=== PATIENT | female | born 1985 | race Caucasian/White ===

== ENCOUNTER 2021-03-10 10:46 | Emergency (ER) | payer BC, SELFPAY ==
[2021-03-10 11:37] VITALS: BP 131/94; PULSE 118; RESP 18; TEMP 37.3; O2SAT 96; BMI 24.7
[2021-03-10 13:02] LABS: Bilirubin Urine Neg (Negative); Blood Urine 3+ (Negative); Glucose Urine UA Norm (Normal); Ketones Urine Negative (Negative); Leukocyte Esterase Urine 2+ (Negative); Nitrate Urine Negative (Negative); Protein Urine Neg (Negative); Specific Gravity, Urine 1.015 (1.005-1.030); Urine Appearance Cloudy (CLEAR); Urine Color Yellow (Yellow); Urobilinogen Urine Norm (Negative); pH Urine 7 (5-7)
[2021-03-10 13:04] LABS: Add Urine Culture? Yes; Amorphous Sediment Urine 2+ /hpf; Bacteria Urine 2+ /hpf; WBC Urine 15-25 /hpf (0-5)
--- NOTE | 2021-03-10 13:29 | W.ED.ABDPA2 ---
HPI - Abdominal Pain General: Chief Complaint: Abdominal Pain Stated Complaint: lower abd pain, bleeding Time Seen by Provider: 03/10/21 13:16 History of Present Illness: HPI narrative: Patient is a 35-year-old female comes to the ED with bilateral pelvic pain and vaginal bleeding. Approximately 4 days ago she started developing bilateral pelvic pain. This morning she woke up and she was having some light vaginal bleeding. Patient took some Motrin this morning to help with the pain. Few hours later this morning she started having some light vaginal bleeding as well. Patient last menstrual period was on February 17. Patient says that for the past 3 months prior she had been taking control but for the past month she has not been taking it. She does endorse being sexually active but says that her significant other has had a vasectomy. Associated Symptoms: Denies chills, constipation, diarrhea, dysuria, fever(s), hematochezia, hematuria, nausea and vomiting Related Data: Date of Last Menstrual Period: 02/17/21 Review of Systems Const: Denies: fever(s), chills or fatigue Eyes: Denies: change in vision or eye discomfort ENMT: Denies: throat pain, odynophagia, nasal discharge or nasal congestion Card: Denies: chest pain, palpitations, edema, swelling of feet/ankles, dyspnea on exertion or orthopnea Resp: Denies: dyspnea, productive cough or non-productive cough GI: Reports: abdominal pain (Bilateral pelvic pain); Denies: nausea, vomiting, diarrhea, constipation or hematochezia : Reports: vaginal bleeding and pelvic pain; Denies: flank pain, dysuria or hematuria Musc: Denies: neck pain, back pain or extremity swelling Skin/Breast: Denies: rash or new lesions Neuro: Denies: headache(s), numbness in extremities or weakness in extremities [facility] ED Female Reproductive History: Date of last menstrual period: 02/17/21 Physical Exam Const: COMMON NORMALS: no acute distress, patient oriented x3, healthy appearing and alert GENERAL APPEARANCE: cooperative and comfortable HENMT: COMMON NORMALS: normocephalic HEAD & SCALP: normocephalic MOUTH: Normal oral and palatal mucosa present THROAT: posterior oropharynx normal and uvula midline Neck/C-Spine: COMMON NORMALS: supple GENERAL: Yes normal visual inspection Resp: COMMON NORMALS: normal respiratory effort, No retractions, No use of accessory muscles and clear to auscultation bilaterally AUSCULTATION: clear to auscultation bilaterally Cardio: COMMON NORMALS: regular rate, regular rhythm, S1 normal heart sound present, S2 normal heart sound present, No gallops present (Cardio), No clicks present (Cardio), No murmurs present (Cardio) and Peripheral pulses 2+ throughout RATE: regular rate RHYTHM: regular rhythm HEART SOUNDS: S1 normal heart sound present and S2 normal heart sound present PERIPHERAL PULSES: Peripheral pulses 2+ throughout GI: COMMON NORMALS: Normal to inspection, nondistended, normoactive bowel sounds present, Soft to palpation and no masses PALPATION: Yes Soft to palpation, Yes Tenderness to palpation present (GI) (Left lower pelvic tenderness) and Yes Bladder palpation abnormal : COMMON NORMALS: Yes no CVA tenderness BLADDER/KIDNEY EXAM: Yes no CVA tenderness and Yes Bladder palpation abnormal Bladder abnormal details: tender Back/Pelvis: COMMON NORMALS: no CVA tenderness Extremity: COMMON NORMALS: normal to inspection Neuro: COMMON NORMALS: patient oriented x3 SENSORIUM/ORIENTATION: Yes alert GAIT: Yes Normal gait present Skin: GENERAL SKIN EXAM: dry skin Course Vital Signs: Vital signs: Vital Signs Temperature 98.8 F 03/10/21 16:03 Pulse Rate 100 03/10/21 16:03 Respiratory Rate 16 03/10/21 16:03 Blood Pressure 110/78 03/10/21 16:03 Pulse Oximetry 98 03/10/21 16:03 MDM - Abdominal Pain MDM Narrative: Medical decision making narrative: Patient is a 35-year-old female comes to the ED with pelvic pain and vaginal bleeding. Exam shows bladder tenderness upon palpation and left pelvic tenderness. Vitals stable. White blood cell count 15.5 but the rest of the CBC and CMP were unremarkable. hCG negative. UA shows some red blood cells, white blood cells and bacteria. Ultrasound of the pelvis showed left hemorrhagic ovarian cyst. Patient diagnosed with a UTI hemorrhagic cyst of left ovary. She was told to follow-up with her PCP in 7 to 10 days reevaluation. Return to ED precautions given. She was discharged home with a prescription for Bactrim. Patient understood and agreed with plan. Lab Data: Attestation: I reviewed the patient's lab results. Labs: Lab Results 03/10/21 03/10/21 03/10/21 Range/Units 12:45 13:44 13:44 WBC 15.5 H (4.0-10.0) 10^3/ uL RBC 4.59 (4.1-5.3) 10^6/u L Hgb 14.2 (11.5-15.3) g/dL Hct 42.1 (37.0-47.0) % MCV 91.7 (81-99) fl MCH 30.9 (28.0-34.0) pg MCHC 33.7 (30.0-36.0) g/dL RDW 12.3 (12.1-15.1) % Plt Count 313 (130-400) 10^3/c mm MPV 9.9 (7.4-10.4) fL Neut % (Auto) 67.1 % Lymph % (Auto) 18.7 % [place] % (Auto) 11.2 % Eos % (Auto) 2.2 % Baso % (Auto) 0.5 % Neut # (Auto) 10.39 H (1.8-7.7) 10^3/u L Lymph # (Auto) 2.9 (0.8-4.8) 10^3/u L [place] # (Auto) 1.7 H (0.2-0.9) 10^3/u L Eos # (Auto) 0.3 (0.0-0.8) 10^3/u L Baso # (Auto) 0.1 (0.0-0.1) 10^3/u L Nucleated RBC % (a uto) 0 % Nucleated RBCs # 0.0 /100WBC Sodium 139 (136-145) mmol/L Potassium 4.2 (3.5-5.1) mmol/L Chloride 103 (98-107) mmol/L Carbon Dioxide 25 (22-29) mmol/L Anion Gap 15.2 (5-19) BUN 7 (6-20) mg/dL Creatinine 0.4 L (0.5-0.9) mg/dL GFR Calculation 181.6 H (90-130) mL/min Glucose 98 (65-115) mg/dL Calculated Osmolal ity 286 (285-295) mOsm/k g Calcium 9.1 (8.5-10.5) mg/dL Total Bilirubin 0.3 (0.15-1.2) mg/dL AST 13 (0-32) U/L ALT 11 (0-33) U/L Alkaline Phosphata se 99 (35-105) IU/L Total Protein 7.5 (6.6-8.7) g/dL Albumin 4.1 (3.5-5.2) g/dL Globulin 3.4 (1.3-4.6) g/dL Lipase 43 (13-60) U/L HCG, Qual (Negative) Urine Color Yellow (Yellow) Urine Appearance Cloudy (CLEAR) Urine pH 7 (5-7) Ur Specific Gravit y 1.015 (1.005-1.030) Urine Protein Neg (Negative) Urine Glucose (UA) Norm (Normal) Urine Ketones Negative (Negative) Urine Blood 3+ H (Negative) Urine Nitrate Negative (Negative) Urine Bilirubin Neg (Negative) Urine Urobilinogen Norm (Negative) mg/dL Ur Leukocyte Mari ase 2+ H (Negative) Urine RBC 10-15 H (0-2) /hpf Urine WBC 15-25 H (0-5) /hpf Ur Squamous Epith Cells 5-10 H (0-5) /hpf Amorphous Sediment 2+ /hpf Urine Bacteria 2+ H (NONE) /hpf 03/10/21 Range/Units 13:44 WBC (4.0-10.0) 10^3/ uL RBC (4.1-5.3) 10^6/u L Hgb (11.5-15.3) g/dL Hct (37.0-47.0) % MCV (81-99) fl MCH (28.0-34.0) pg MCHC (30.0-36.0) g/dL RDW (12.1-15.1) % Plt Count (130-400) 10^3/c mm MPV (7.4-10.4) fL Neut % (Auto) % Lymph % (Auto) % [place] % (Auto) % Eos % (Auto) % Baso % (Auto) % Neut # (Auto) (1.8-7.7) 10^3/u L Lymph # (Auto) (0.8-4.8) 10^3/u L [place] # (Auto) (0.2-0.9) 10^3/u L Eos # (Auto) (0.0-0.8) 10^3/u L Baso # (Auto) (0.0-0.1) 10^3/u L Nucleated RBC % (a uto) % Nucleated RBCs # /100WBC Sodium (136-145) mmol/L Potassium (3.5-5.1) mmol/L Chloride (98-107) mmol/L Carbon Dioxide (22-29) mmol/L Anion Gap (5-19) BUN (6-20) mg/dL Creatinine (0.5-0.9) mg/dL GFR Calculation (90-130) mL/min Glucose (65-115) mg/dL Calculated Osmolal ity (285-295) mOsm/k g Calcium (8.5-10.5) mg/dL Total Bilirubin (0.15-1.2) mg/dL AST (0-32) U/L ALT (0-33) U/L Alkaline Phosphata se (35-105) IU/L Total Protein (6.6-8.7) g/dL Albumin (3.5-5.2) g/dL Globulin (1.3-4.6) g/dL Lipase (13-60) U/L HCG, Qual Negative (Negative) Urine Color (Yellow) Urine Appearance (CLEAR) Urine pH (5-7) Ur Specific Gravit y (1.005-1.030) Urine Protein (Negative) Urine Glucose (UA) (Normal) Urine Ketones (Negative) Urine Blood (Negative) Urine Nitrate (Negative) Urine Bilirubin (Negative) Urine Urobilinogen (Negative) mg/dL Ur Leukocyte Mari ase (Negative) Urine RBC (0-2) /hpf Urine WBC (0-5) /hpf Ur Squamous Epith Cells (0-5) /hpf Amorphous Sediment /hpf Urine Bacteria (NONE) /hpf Imaging Data ^: US: Attestation: I personally reviewed and interpreted this imaging study as follows: Radiologist's impression: [address] [address] Ultrasound Report Signed Patient: Nimco Choi Unit #: [id number] : 1985 Age/Sex: 35 / F ADM Date: 03/10/21 Loc: ER Room/Bed: Attending Dr: Ordering Provider/Ordering MD: Thomas Mann Date of Service: 03/10/21 Procedure(s): US pelvic with transvaginal Accession Number(s): [id number] Report Number: [id number] PROCEDURE INFORMATION: Exam: US Pelvis Complete, Transabdominal and US Pelvis, Transvaginal and US Duplex Artery and Vein, Ovaries, Complete Exam date and time: 03/10/2021 1:54 PM Age: 35 years old Clinical indication: Other: Pelvic pain with vaginal bleeding; Additional info: Bilateral pelvic pain with vaginal bleeding TECHNIQUE: Imaging protocol: Real-time transabdominal and transvaginal pelvic ultrasound (complete) with image documentation. Transvaginal imaging was used for better evaluation of the endometrium, adnexa, and/or cervix. Real-time duplex ultrasound scan of the arterial and venous flow of the ovaries with B-mode, color Doppler flow and spectral waveform analysis. COMPARISON: No relevant prior studies available. FINDINGS: Uterus/cervix: The uterus measures 8.1 x 5.6 x 4.9 cm. Uterus is unremarkable in appearance. Endometrial stripe measures 9.2 mm. Uterus is mildly retroverted. Right adnexa: The right ovary measures 3.6 x 3.2 x 2.7 cm. The right ovary has an appropriate appearance. The right ovary demonstrates good color flow. The right ovary is unremarkable with subcentimeter follicular cysts. The right ovary demonstrates appropriate Doppler with arterial and venous flow. Left adnexa: The left ovary measures 3.3 x 3.2 x 3.3 cm. There is a complex cystic area left ovary with crenulated contour and internal echoes or debris measuring 2.8 x 1.8 x 2.7 cm. This has the appearance of a collapsing/hemorrhagic cyst. Doppler evaluation left ovary demonstrates good arterial and venous flow. No left ovarian torsion. Intraperitoneal space: There is a small amount of fluid in the cul-de-sac. Urinary bladder: Partially collapsed but unremarkable. US/US pelvic with transvaginal IMPRESSION: 1. There is a complex cystic area left ovary with crenulated contour and internal echoes or debris measuring 2.8 x 1.8 x 2.7 cm. This has the appearance of a collapsing/hemorrhagic cyst. There is a small amount of fluid in the cul-de-sac. 2. Unremarkable uterus and right ovary. Unremarkable bilateral ovarian Doppler. No torsion. Dictated By: Juliane Luis Signed By: Juliane Luis Signed Date/Time: 03/10/211523 DD/ 22 Discharge Plan Discharge Patient Disposition: Home Clinical Impression: Hemorrhagic cyst of left ovary UTI (urinary tract infection) Qualifiers: Urinary tract infection type: acute cystitis Hematuria presence: with hematuria Qualified Code(s): N30.01 - Acute cystitis with hematuria Condition: Stable Prescriptions: New sulfamethoxazole-trimethoprim 800-160 mg tablet 1 tab PO BID 5 Days Qty: 10 RF: 0 Discharge Orders: Discharge ED (Routine); Ordered 03/10/21 Ordered By: Thomas Mann Discharge Diet: Regular Discharge Activity: Increase activity as tolerated Patient Instructions: Ovarian Cyst (ED), Urinary Tract Infection in Women (ED) Activity Restrictions/Additional Instructions: Follow-up with medical provider as directed in 7 to 10 days for reevaluation. Take medications as prescribed. Take [id number] ibuprofen or Tylenol for pain and drink plenty of fluids and stay hydrated. Return to the ER or your medical provider if condition worsens. Please read and understand discharge instructions. Thank you for choosing [facility] for your healthcare needs today. Please realize this is an emergency room and that we are providing you with a medical screening exam and this may not be complete and all inclusive of all the testing and or work up that you may need to determine your ailment or severity of your illness. It is very important that you follow up as instructed or that you return to the Emergency Department should you have concerns or if your condition changes or worsens in any way. Coding Level of Care Code ED [employer] Support Manager for Paola Haas Exam Comprehensive
--- NOTE | 2021-03-10 13:45 | PC.NURSE ---
bahman loco started this iv
[2021-03-10 13:46] VITALS: BP 139/89; O2SAT 98
--- NOTE | 2021-03-10 13:54 | USR_ITS ---
PROCEDURE INFORMATION: Exam: US Pelvis Complete, Transabdominal and US Pelvis, Transvaginal and US Duplex Artery and Vein, Ovaries, Complete Exam date and time: 03/10/2021 1:54 PM Age: 35 years old Clinical indication: Other: Pelvic pain with vaginal bleeding; Additional info: Bilateral pelvic pain with vaginal bleeding TECHNIQUE: Imaging protocol: Real-time transabdominal and transvaginal pelvic ultrasound (complete) with image documentation. Transvaginal imaging was used for better evaluation of the endometrium, adnexa, and/or cervix. Real-time duplex ultrasound scan of the arterial and venous flow of the ovaries with B-mode, color Doppler flow and spectral waveform analysis. COMPARISON: No relevant prior studies available. FINDINGS: Uterus/cervix: The uterus measures 8.1 x 5.6 x 4.9 cm. Uterus is unremarkable in appearance. Endometrial stripe measures 9.2 mm. Uterus is mildly retroverted. Right adnexa: The right ovary measures 3.6 x 3.2 x 2.7 cm. The right ovary has an appropriate appearance. The right ovary demonstrates good color flow. The right ovary is unremarkable with subcentimeter follicular cysts. The right ovary demonstrates appropriate Doppler with arterial and venous flow. Left adnexa: The left ovary measures 3.3 x 3.2 x 3.3 cm. There is a complex cystic area left ovary with crenulated contour and internal echoes or debris measuring 2.8 x 1.8 x 2.7 cm. This has the appearance of a collapsing/hemorrhagic cyst. Doppler evaluation left ovary demonstrates good arterial and venous flow. No left ovarian torsion. Intraperitoneal space: There is a small amount of fluid in the cul-de-sac. Urinary bladder: Partially collapsed but unremarkable. US/US pelvic with transvaginal IMPRESSION: 1. There is a complex cystic area left ovary with crenulated contour and internal echoes or debris measuring 2.8 x 1.8 x 2.7 cm. This has the appearance of a collapsing/hemorrhagic cyst. There is a small amount of fluid in the cul-de-sac. 2. Unremarkable uterus and right ovary. Unremarkable bilateral ovarian Doppler. No torsion.
[2021-03-10 14:04] LABS: Basophils # 0.1 10^3/uL (0.0-0.1); Basophils % 0.5 %; Eosinophils # 0.3 10^3/uL (0.0-0.8); Eosinophils % 2.2 %; Hematocrit 42.1 % (37.0-47.0); Hemoglobin 14.2 g/dL (11.5-15.3); Lymphocytes # 2.9 10^3/uL (0.8-4.8); Lymphocytes % 18.7 %; Mean Corpuscular HGB Conc 33.7 g/dL (30.0-36.0); Mean Corpuscular Hemoglobin 30.9 pg (28.0-34.0); Mean Corpuscular Volume 91.7 fl (81-99); Mean Platelet Volume 9.9 fL (7.4-10.4); Monocytes # 1.7 10^3/uL (0.2-0.9); Monocytes % 11.2 %; Neutrophils # 10.39 10^3/uL (1.8-7.7); Neutrophils % 67.1 %; Nucleated Red Blood Cells % 0 %; Platelet Count 313 10^3/cmm (130-400); Red Blood Count 4.59 10^6/uL (4.1-5.3); Red Cell Distribution Width 12.3 % (12.1-15.1); White Blood Count 15.5 10^3/uL (4.0-10.0)
[2021-03-10 14:24] LABS: HCG, Serum Qual Negative (Negative)
[2021-03-10 14:31] LABS: Alanine Aminotransferase 11 U/L (0-33); Albumin Level 4.1 g/dL (3.5-5.2); Alkaline Phosphatase 99 IU/L (35-105); Anion Gap 15.2 (5-19); Aspartate Amino Transferase 13 U/L (0-32); Blood Urea Nitrogen 7 mg/dL (6-20); Calcium 9.1 mg/dL (8.5-10.5); Carbon Dioxide 25 mmol/L (22-29); Chloride 103 mmol/L (98-107); Globulin 3.4 g/dL (1.3-4.6); Glomerular Filtration Rate 181.6 mL/min (90-130); Glucose 98 mg/dL (65-115); Lipase 43 U/L (13-60); Osmolality Calculated 286 mOsm/kg (285-295); Potassium 4.2 mmol/L (3.5-5.1); Sodium 139 mmol/L (136-145); Total Bilirubin 0.3 mg/dL (0.15-1.2); Total Protein 7.5 g/dL (6.6-8.7)
[2021-03-10 15:48] VITALS: BP 110/78; PULSE 100; RESP 16; O2SAT 98
[2021-03-10 16:03] VITALS: BP 110/78; PULSE 100; RESP 16; TEMP 37.1; O2SAT 98
== END 2021-03-10 16:04 | disposition home or self-care (01) ==
PROVIDERS: Emergency Provider Physician Assistant
DX: N30.01 Acute cystitis with hematuria (principal); N83.202 Unspecified ovarian cyst, left side
CPT/HCPCS: 76830; 76856; 80053; 81001; 83690; 84703; 85025; 87086; 99283

== ENCOUNTER → 2021-04-24 09:47 | Outpatient (BNVA) | payer BC, SELFPAY | PROVIDERS: Visit Provider Obstetrics & Gynecology | DX: N92.0 Excessive and frequent menstruation with regular cycle (principal); N83.202 Unspecified ovarian cyst, left side | CPT/HCPCS: 83001; 84443; 84702; 85025 ==

== ENCOUNTER → 2021-05-01 08:58 | Outpatient (BNVA) | payer BC, SELFPAY | PROVIDERS: Visit Provider Obstetrics & Gynecology | DX: N83.202 Unspecified ovarian cyst, left side (principal) | CPT/HCPCS: 76830 ==

== ENCOUNTER → 2023-10-28 12:40 | Outpatient (BNVA) | payer BC, SELFPAY | PROVIDERS: PCP Clinical Nurse Specialist Adult Health; Visit Provider Clinical Nurse Specialist Adult Health | DX: E66.01 Morbid (severe) obesity due to excess calories (principal); F41.1 Generalized anxiety disorder | CPT/HCPCS: 80053; 80061; 83036; 85025 ==